=== PATIENT | female | born 1980 | race Caucasian/White ===

== ENCOUNTER 2016-10-14 20:05 | Emergency (ER) | payer SELFPAY ==
[2016-10-14 20:14] VITALS: BP 124/82
--- NOTE | 2016-10-14 20:36 | UC ---
Lower Extremity/Ankle HPI - History of Current Complaint Chief Complaint: UCLowerExtremity Stated Complaint: RIGHT ANKLE/LEG SWELLING Time Seen by Provider: 10/14/16 20:23 Hx Obtained From: Patient Hx Last Menstrual Period: 10/10/16 ?: No Onset/Duration: Gradual Onset, Lasting Days - 3, Worse Since - the onset Severity Initially: Mild Severity Currently: Severe Aggravating Factor(s): Standing, Ambulation Alleviating Factor(s): Rest Able to Bear Weight: Yes - Risk Factors Gout Risk Factors: Obesity DVT Risk Factors: Smoking Septic Arthritis Risk Factor: Negative - Allergies/Home Medications Allergies/Adverse Reactions: Allergies Allergy/AdvReac Type Severity Reaction Status Date / Time No Known Allergies Allergy Verified 10/14/16 20:14 Home Medications: Home Medications Acetaminophen [Extra Strength Acetaminop] 2,000 mg PO ONCE PRN 10/14/16 [ History Confirmed 10/14/16] PMH/Surg Hx/FS Hx/Imm Hx Endocrine History Of: Denies: Diabetes Cardiovascular History Of: Denies: Hypertension GI/ History Of: Reports: Gastroesophageal Reflux - Surgical History Surgical History: Yes Surgery Procedure, Year, and Place: C- Section. Left shoulder surgery - Family History Known Family History: Positive: Cardiac Disease, Hypertension, Diabetes, Other - no family hx of angioedema or anaphylaxis - Social History Occupation: Employed Full-time Lives: With Family Alcohol Use: Occasionally Substance Use Type: None Smoking Status (MU): Light Every Day Tobacco Smoker Type: Cigarettes Amount Used/How Often: 1 PK PER WK Length of Time of Smoking/Using Tobacco: 20 YRS Have You Smoked in the Last Year: Yes Review of Systems Musculoskeletal: Arthralgia - right ankle All Other Systems Reviewed And Are Negative: Yes Physical Exam Triage Information Reviewed: Yes Appearance: Well-Appearing, No Pain Distress - at rest, but pain with walking., Obese Vital Signs: Initial Vital Signs Temp 98.2 F 10/14/16 20:07 Pulse 91 10/14/16 20:07 Resp 16 10/14/16 20:07 BP 124/82 10/14/16 20:07 Pulse Ox 100 10/14/16 20:07 Vital Signs Reviewed: Yes Eyes: Positive: Conjunctiva Clear Neck exam: Normal Respiratory Exam: Normal Cardiovascular Exam: Normal Musculoskeletal: Positive: ROM Limited @ - right ankle with swelling, warmth and tenderness to touch Neurological Exam: Normal Psychological Exam: Normal Skin Exam: Normal Lower Extremity Course/Dx - Differential Dx/Diagnosis Differential Diagnosis/HQI/PQRI: Cellulitis, Gout, Phlebitis, Sprain Provider Diagnoses: Acute gout right ankle. Discharge - Discharge Plan Condition: Stable Disposition: HOME Prescriptions: Indomethacin CAP* [Indocin CAP*] 25 mg PO TID PRN #90 cap PRN Reason: gout pain Patient Education Materials: Gout (ED), Indomethacin (By mouth) Referrals: Nikunj Payne NP [Primary Care Provider] - 2 Weeks (Recheck ankle and uric acid levels.)
[2016-10-14] MEDS ORDERED: Indomethacin CAP* 25 MG CAP PO ONE (20:40)
[2016-10-14] MEDS ORDERED: Indomethacin CAP* 25 MG CAP ONE (21:04)
== END 2016-10-14 21:15 | disposition home or self-care (01) ==
LOC: UCCORT 20:05
DX: M10.071 Idiopathic gout, right ankle and foot (principal); F17.210 Nicotine dependence, cigarettes, uncomplicated; E66.9 Obesity, unspecified
CPT/HCPCS: 99212; A9270-GY; G0463

== ENCOUNTER 2016-12-18 16:46 | Emergency (ER) | payer BC ==
--- NOTE | 2016-12-18 18:11 | UC ---
Abdominal Pain Female HPI - HPI Summary HPI Summary: The patient comes in today for: 1. Abdominal pain: Onset: Last night. Palliative/provocative: Pushing on it makes it better. Coughing, sneezing, bumps in the road makes it worse. Quality: Ache Region: LLQ Severity: 10/12 Time: Constant, but severity changes. Associated symptoms: FE nahed: Today here in the office. Diverticulosis. Unexplained vaginal discharge or bleeding. She has had Mirena for more than 2 years. * - History of Current Complaint Chief Complaint: UCAbdominalPain Stated Complaint: RIGHT ARM/SIDE PAIN,STOMACH PAIN,CHILLS Hx Obtained From: Patient Hx Last Menstrual Period: 12/12/16 Allergies/Adverse Reactions: Allergies Allergy/AdvReac Type Severity Reaction Status Date / Time No Known Allergies Allergy Verified 12/18/16 17:30 Home Medications: Home Medications Levonorgestrel (Iud) [Mirena IUD] 20 mcg IU 12/18/16 [History] PMH/Surg Hx/FS Hx/Imm Hx Previously Healthy: No - Family planning/Mirena Endocrine History Of: Denies: Diabetes, Thyroid Disease, Hyperthyroidism, Hypothyroidism, Dyslipidemia Cardiovascular History Of: Denies: Cardiac Disorders, Hypertension, Pacemaker/ICD, Myocardial Infarction , Congestive Heart Failure, Atrial Fibrillation, Deep Vein Thrombosis, Bleeding Disorders Respiratory History Of: Denies: COPD, Asthma, Bronchitis, Pneumonia, Pulmonary Embolism GI/ History Of: Reports: Gastroesophageal Reflux - She denies. Denies: Ulcer, Gastrointestinal Bleed, Gall Bladder Disease, Kidney Stones, Diverticulitis, Renal Disease, Urosepsis Neurological History Of: Denies: TIA, CVA, Dementia, Seizures, Migraine Psychological History Of: Denies: Anxiety, Depression, Bipolar Disorder, Schizophrenia, Post Traumatic Stress Disorder Cancer History Of: Denies: Lung Cancer, Colorectal Cancer, Breast Cancer, Prostate Cancer, Cervical Cancer - Surgical History Surgical History: Yes Surgery Procedure, Year, and Place: C- Section. Left shoulder surgery - Family History Known Family History: Positive: Cardiac Disease, Hypertension, Diabetes, Other - no family hx of angioedema or anaphylaxis - Social History Occupation: Employed Full-time Alcohol Use: Occasionally Substance Use Type: None Smoking Status (MU): Light Every Day Tobacco Smoker Type: Cigarettes Amount Used/How Often: 1 PK PER WK Length of Time of Smoking/Using Tobacco: 20 YRS Have You Smoked in the Last Year: Yes Review of Systems Constitutional: Fever Skin: Negative Eyes: Negative ENT: Negative, Nasal Discharge Respiratory: Negative Cardiovascular: Negative, Other Gastrointestinal: Abdominal Pain Genitourinary: Negative Neurological: Headache All Other Systems Reviewed And Are Negative: Yes Physical Exam Triage Information Reviewed: Yes Appearance: Well-Appearing, No Pain Distress, Well-Nourished Vital Signs: Initial Vital Signs Temp 101.2 F 12/18/16 17:31 Pulse 111 12/18/16 17:31 Resp 20 12/18/16 17:31 BP 132/68 12/18/16 17:31 Pulse Ox 100 12/18/16 17:31 Vital Signs Reviewed: Yes Eyes: Positive: Conjunctiva Clear. Negative: Discharge ENT: Positive: Hearing grossly normal. Negative: Pharyngeal erythema, Nasal congestion, Nasal drainage, TM bulging, TM dull, TM red, Tonsillar swelling, Tonsillar exudate Dental: Negative: Gross Decay/Caries @, Dental Fracture @ Neck: Positive: Supple, Nontender, No Lymphadenopathy. Negative: Nuchal Rigidity Respiratory: Positive: Chest non-tender, No respiratory distress, No accessory muscle use. Negative: Crackles, Wheezing Cardiovascular: Positive: RRR, No Murmur Abdomen Description: Positive: No Organomegaly, Soft, Peritoneal Signs. Negative: Nontender - The has tenderness to palpation of the left lower quadrant. There is rebound tenderness. Musculoskeletal: Positive: Strength Intact, ROM Intact, No Edema Neurological: Positive: Alert, Muscle Tone Normal Psychological: Positive: Age Appropriate Behavior, Consolable Skin: Negative: rashes, breakdown Diagnostics - Laboratory Diagnostic Studies Completed/Ordered: test was negative, and the urine analysis is negative for WBC's. Abd Pain Female Course/Dx - Differential Dx/Diagnosis Provider Diagnoses: Abdominal pain (LLQ). rule out diverticulitis - Physician Notification/Consults Discussed Patient Care With: Olive Elizondo Time Discussed With Above Provider: 18:27 Discharge - Discharge Plan Condition: Stable Disposition: HOME Forms: *Work Release Referrals: Nikunj Payne NP [Primary Care Provider] - Additional Instructions: The patient is going over to the [facility] ER for further evaluation.
[2016-12-18] MEDS ORDERED: Acetaminophen TAB* 325 MG PO ONE (18:21)
[2016-12-18 18:29] VITALS: BP 132/66
== END 2016-12-18 18:28 | disposition left against medical advice (07) ==
LOC: UCCORT 16:46
DX: R10.32 Left lower quadrant pain (principal); Z32.02 Encounter for pregnancy test, result negative; F17.210 Nicotine dependence, cigarettes, uncomplicated
CPT/HCPCS: 81003; 84702; 99213; A9270-GY; G0463